=== PATIENT | male | born 1935 | race Caucasian/White ===

== ENCOUNTER 2017-12-04 10:27 | Outpatient (CLI) | payer BC, MEDICARE ==
--- NOTE | 2017-12-04 11:55 | RAD ---
FOUR VIEWS LUMBAR SPINE: History: Spondylosis. Disc herniation. FINDINGS: AP, lateral neutral, lateral flexion, and lateral extension views of the lumbar spine demonstrate fiv e lumbar type vertebral bodies. Vertebral body height is maintained. No fracture. There is moderate d egenerative disc disease with loss of disc space height loss at L1-2, L2-3 and L5-S1. Mild to moderat e degenerative disc disease at L3-4 and L4-5. In the neutral position, 4 mm of retrolisthesis of L3 upon L4. Upon flexion, 4 mm of retrolisthesis o f L3 upon L4. Upon extension, 3.5 mm retrolisthesis of L3 upon L4. In the neutral position, 3 mm retrolisthesis of L4 upon L5. Upon flexion, 2.5 mm retrolisthesis of L4 upon L5. Upon extension, 3.4 mm retrolisthesis of L4 upon L5. Extensive atherosclerosis is noted. IMPRESSION: 1. Degenerative changes in the lumbar spine as above. 2. Essentially stable retrolisthesis of L3 upon L4 and L4 upon L5. POS: ANNA
== END 2017-12-04 10:28 | disposition home or self-care (01) ==
LOC: BICRAD 10:27
PROVIDERS: ATTEND Specialist
DX: M47.896 Other spondylosis, lumbar region (principal); M43.16 Spondylolisthesis, lumbar region
CPT/HCPCS: 72120; S0020